=== PATIENT | female | born 1980 | race Two or more races ===

== ENCOUNTER 2016-11-12 09:17 | Emergency (ER) | payer SELFPAY ==
[2016-11-12] MEDS ORDERED: ONDANSETRON 4 MG/2ML 2 ML VIAL ONE (09:44)
[2016-11-12] MEDS ORDERED: SODIUM CHLORIDE 0.9% 2,000 ML ONE (09:44)
[2016-11-12 10:06] LABS: ABSOLUTE NEUTROPHIL COUNT 9.3 K/mm3 (1.8-7.7); BASO % 0.2 % (0.2-1.0); EOS % 0.1 % (0.9-2.9); HEMOGLOBIN 12.4 gm/l (12.0-16.0); IMM NEUT% 0.3 % (0-1); LYMPH # 0.5 (1.0-4.8); LYMPH % 5.3 % (15-45); MEAN CELL VOLUME 86.1 fl (81.0-99.0); MEAN CORPUSCULAR HEMOGLOBIN 27.4 pg (27.0-31.0); MEAN CORPUSCULAR HGB CONC 31.8 g/dl (33.0-37.0); MEAN PLATELET VOLUME 9.4 fl (7.4-10.4); MONO # 0.4 (0.0-0.8); MONO % 3.5 % (4-12); NEUT % 90.6 % (43-75); PLATELET COUNT 309 K/mm3 (130-400); RED CELL DISTRIBUTION WIDTH 13.2 % (11.5-14.5)
[2016-11-12 10:22] LABS: ALB/GLOB RATIO 1.2 (>1.0); ALBUMIN 3.7 gm/dL (3.5-5.7); CALCIUM 8.1 mg/dL (8.6-10.3)
== END 2016-11-12 11:23 | disposition home or self-care (01) ==
LOC: ED 09:17
DX: E86.0 Dehydration (principal)